=== PATIENT | male | born 1990 | race Hispanic/Latino ===

== ENCOUNTER 2023-10-09 08:17 | Inpatient (IN) | payer OTHER ==
[~2023-10-09] VITALS: Ht 167.6 cm; Wt 139.7 kg
[2023-10-09 08:42] LABS: BASOPHILS # (AUTO) 0.02 K/uL (0.00-0.20); BASOPHILS % (AUTO) 0.5 % (0.0-5.0); EOSINOPHILS # (AUTO) 0.12 K/uL (0.00-0.70); IMMATURE GRANULOCYTE ABSOLUTE 0.01 K/uL (0-1); LYMPHOCYTES % (AUTO) 26.2 % (21.0-51.0); MEAN CORPUSCULAR HEMOGLOBIN 30.1 pg (27.0-33.0); MEAN CORPUSCULAR VOLUME 83.5 fL (79-99); MONOCYTES # (AUTO) 0.8 K/uL (0.1-1.0); MONOCYTES % (AUTO) 19.1 % (3.0-13.0); NEUTROPHILS % (AUTO) 50.9 % (40.0-77.0); PLATELET COUNT (AUTO) 202 K/uL (130-400); RED BLOOD CELL COUNT(AUTO) 5.39 MIL/uL (4.50-6.20); RED CELL DISTRIBUTION WIDTH 11.8 % (11.0-15.5)
[2023-10-09 08:48] LABS: APPEARANCE,URINE CLEAR (CLEAR); BILIRUBIN,URINE NEGATIVE (NEGATIVE); COLOR,URINE YELLOW (YELLOW); GLUCOSE, URINE (UA) NEGATIVE (NEGATIVE); KETONES,URINE NEGATIVE (NEGATIVE); LEUKOCYTE ESTERASE ,URINE NEGATIVE Leu/uL (NEGATIVE); NITRATE,URINE NEGATIVE (NEGATIVE); OCCULT BLOOD,URINE SMALL (NEGATIVE); PROTEIN,URINE 10 mg/dL (NEGATIVE); UROBILINOGEN,URINE 0.2 mg/dL (0.2-1.0)
[2023-10-09 08:52] LABS: CREATININE 1.5 mg/dL (0.5-1.3); POTASSIUM 3.6 mmol/L (3.5-5.1)
[2023-10-09 08:55] LABS: ADD UA MICROSCOPIC YES; BACTERIA,URINE RARE /HPF (None Seen); MUCUS,URINE RARE LPF (None Seen); OTHER CASTS, URINE 1 /LPF (None Seen); SQUAMOUS EPITHELIAL CELL,UR RARE /HPF (0-2)
[2023-10-09 08:57] LABS: ALBUMIN 3.9 g/dL (3.5-5.0); BILIRUBIN,TOTAL 0.5 mg/dL (0.2-1.0); TOTAL PROTEIN, SERUM 8.1 g/dL (6.0-8.3)
[2023-10-09] MEDS: ASPIRIN 325MG TAB PO ONE (09:36)
[2023-10-09 10:41] LABS: SARS-CoV-2, RNA, NAAT NEGATIVE SARS CoV-2 (NEGATIVE)
[2023-10-09 10:44] LABS: INFLUENZA TYPE A Negative For Type A (NEGATIVE); INFLUENZA TYPE B Negative For Type B (NEGATIVE)
[2023-10-09] MEDS ORDERED: IOHEXOL 350 MG/ML 100ML INFUS..BTL IV ONE (11:11)
[2023-10-09] MEDS ORDERED: KCL 20 MEQ ERTAB PO PRN (12:30)
[2023-10-09] MEDS ORDERED: POTASSIUM CHLORIDE 20MEQ/100ML 100 ML IV PRN (12:30)
[2023-10-09] MEDS ORDERED: MORPHINE 2 MG SYG IVP PRN (12:30)
[2023-10-09] MEDS: 0.9%NACL 1000ML 1,000 ML IV SCH (12:47)
[2023-10-09] MEDS: CEFTRIAXONE 2GM VIAL IVPB SCH (12:47)
[2023-10-09] MEDS: DOXYCYCLINE HYCLATE 100 MG TABLET PO SCH (12:47)
[2023-10-09] MEDS ORDERED: HYDRALAZINE 20MG/ML VIAL IV PRN (13:00)
[2023-10-09 14:14] LABS: INR 1.1 (0.85-1.15); PARTIAL THROMBOPLASTIN TIME 27.4 SEC (26.3-35.5); PROTHROMBIN TIME 11.6 SEC (9.6-11.6)
[2023-10-09 14:30] LABS: THYROID STIMULATING HORMONE 9.4 uIU/mL (0.36-3.74)
[2023-10-09] MEDS ORDERED: ONDANSETRON 4MG INJ IVP PRN (14:30)
[2023-10-09 14:46] LABS: HEMOGLOBIN A1C 5.9 % (4.0-6.0)
[2023-10-09 15:45] VITALS: O2SAT 97
[2023-10-09 15:50] LABS: AMPHET/METH SCREEN,URINE NEGATIVE (NEGATIVE); BARBITURATE SCREEN, URINE NEGATIVE (NEGATIVE); BENZODIAZEPINES SCREEN,URINE NEGATIVE (NEGATIVE); CANNABINOID SCREEN,URINE NEGATIVE (NEGATIVE); COCAINE SCREEN,URINE NEGATIVE (NEGATIVE); CREATININE,URINE RANDOM 253.58 mg/dL (30-135); OPIATE SCREEN,URINE NEGATIVE (NEGATIVE); PHENCYCLIDINE SCREEN,URINE NEGATIVE (NEGATIVE); SODIUM,URINE RANDOM 114 mmol/l (40-220)
[2023-10-09 16:16] VITALS: BP 146/84; PULSE 80; RESP 16
[2023-10-09] MEDS: LOSARTAN 50 MG TABLET PO ONE (16:25)
[2023-10-09 20:00] VITALS: BP 142/86; PULSE 90; RESP 16
[2023-10-09] MEDS: DOXYCYCLINE 100MG+NS 250ML 250 ML IV SCH (20:45)
[2023-10-09] MEDS: FAMOTIDINE 20MG VIAL IV SCH (20:45)
[2023-10-10] VITALS (8 sets, daily range): BP systolic 136–145; BP diastolic 58–86; PULSE 57–79; RESP 16–20; O2SAT 96–97
[2023-10-10] MEDS: ACETAMINOPHEN 500 MG TABLET PO PRN (00:09)
[2023-10-10 04:56] LABS: THYROID STIMULATING HORMONE 17.33 uIU/mL (0.36-3.74)
[2023-10-10 05:05] LABS: HIV 1&2 ANTIBODY Non-Reactive (Negative); HIV-1 p24 Antigen Non-Reactive (Negative)
[2023-10-10 07:44] LABS: CREATININE 0.9 mg/dL (0.5-1.3); POTASSIUM 3.4 mmol/L (3.5-5.1)
[2023-10-10 08:38] LABS: BASOPHILS # (AUTO) 0.01 K/uL (0.00-0.20); BASOPHILS % (AUTO) 0.4 % (0.0-5.0); EOSINOPHILS # (AUTO) 0.26 K/uL (0.00-0.70); EOSINOPHILS % (AUTO) 9.6 % (0.0-8.0); HEMATOCRIT 40.3 % (42-54); IMMATURE GRANULOCYTE ABSOLUTE 0.02 K/uL (0-1); LYMPHOCYTES # (AUTO) 1.3 K/uL (1.0-4.8); LYMPHOCYTES % (AUTO) 46.3 % (21.0-51.0); MEAN CORPUSCULAR HEMOGLOBIN 30.1 pg (27.0-33.0); MEAN CORPUSCULAR HGB CONC 34.2 g/dL (32.0-36.0); MEAN CORPUSCULAR VOLUME 87.8 fL (79-99); MONOCYTES # (AUTO) 0.5 K/uL (0.1-1.0); MONOCYTES % (AUTO) 18.4 % (3.0-13.0); NEUTROPHILS # (AUTO) 0.7 K/uL (1.8-7.7); NEUTROPHILS % (AUTO) 24.6 % (40.0-77.0); PLATELET COUNT (AUTO) 146 K/uL (130-400); RED BLOOD CELL COUNT(AUTO) 4.59 MIL/uL (4.50-6.20); RED CELL DISTRIBUTION WIDTH 11.9 % (11.0-15.5); WHITE BLOOD COUNT (AUTO) 2.7 K/uL (4.8-10.8)
[2023-10-10] MEDS: LOSARTAN 50 MG TABLET PO SCH ×2 (08:59→21:17)
[2023-10-10] MEDS: ENOXAPARIN SODIUM 30 MG/0.3 ML SQ SCH (09:00)
[2023-10-10 10:15] LABS: BAND NEUTROPHILS % (MANUAL) 20 % (0-2); BASOPHILS % (MANUAL) 2 % (0-2); EOSINOPHILS % (MANUAL) 8 % (1-6); LYMPHOCYTES % (MANUAL) 47 % (22-44); MAN.DIFF COMMENT-IMPRESSION MANUAL DIFFERENTIAL; MONOCYTES % (MANUAL) 10 % (2-9); SEGMENTED NEUTROPHILS % 13 % (40-70); TOTAL CELLS COUNTED 100
[2023-10-10 10:16] LABS: PLATELET MORPHOLOGY COMMENT ADEQUATE; WBC MORPHOLOGY CONSISTENT W/DIFF
[2023-10-10] MEDS: POTASSIUM CHLORIDE 10% ELIXIR 20 MEQ/15 ML UDCUP PO PRN (12:28)
[2023-10-11] VITALS (9 sets, daily range): BP systolic 120–162; BP diastolic 62–95; PULSE 59–76; RESP 18–20; O2SAT 98–99
[2023-10-11 05:39] LABS: BASOPHILS # (AUTO) 0.04 K/uL (0.00-0.20); BASOPHILS % (AUTO) 0.9 % (0.0-5.0); EOSINOPHILS % (AUTO) 9.2 % (0.0-8.0); HEMATOCRIT 40.2 % (42-54); IMMATURE GRANULOCYTE ABSOLUTE 0.01 K/uL (0-1); LYMPHOCYTES # (AUTO) 2.1 K/uL (1.0-4.8); LYMPHOCYTES % (AUTO) 48.5 % (21.0-51.0); MEAN CORPUSCULAR HEMOGLOBIN 29.2 pg (27.0-33.0); MEAN CORPUSCULAR HGB CONC 34.3 g/dL (32.0-36.0); MEAN CORPUSCULAR VOLUME 85.2 fL (79-99); MONOCYTES # (AUTO) 0.6 K/uL (0.1-1.0); MONOCYTES % (AUTO) 14.6 % (3.0-13.0); NEUTROPHILS # (AUTO) 1.2 K/uL (1.8-7.7); NEUTROPHILS % (AUTO) 26.6 % (40.0-77.0); PLATELET COUNT (AUTO) 174 K/uL (130-400); RED BLOOD CELL COUNT(AUTO) 4.72 MIL/uL (4.50-6.20); RED CELL DISTRIBUTION WIDTH 11.8 % (11.0-15.5); WHITE BLOOD COUNT (AUTO) 4.4 K/uL (4.8-10.8)
[2023-10-11 06:00] LABS: ALBUMIN 3.1 g/dL (3.5-5.0); BILIRUBIN,TOTAL 0.3 mg/dL (0.2-1.0); MAGNESIUM 1.7 mg/dL (1.80-2.40); POTASSIUM 4.2 mmol/L (3.5-5.1); TOTAL PROTEIN, SERUM 6.8 g/dL (6.0-8.3)
[2023-10-11] MEDS: LEVOTHYROXINE 50 MCG TABLET PO SCH (06:52)
[2023-10-11] MEDS: MAGNESIUM 2GM PREMIX 50ML 50 ML IV PRN (18:53)
[2023-10-12 03:56] VITALS: BP 111/66; PULSE 74; RESP 18
[2023-10-12 08:00] VITALS: BP 138/75; PULSE 82; RESP 18; O2SAT 96
[2023-10-12] MEDS: FOLIC ACID 1 MG TABLET PO SCH (09:00)
[2023-10-12] MEDS: ASPIRIN 81MG CHEW TAB PO SCH (09:00)
[2023-10-12] MEDS ORDERED: LEVO50TA4 PO (09:45)
[2023-10-12] MEDS ORDERED: CYAN-35 PO (09:45)
[2023-10-12] MEDS ORDERED: ASPI-1005 PO (09:45)
[2023-10-12] MEDS ORDERED: LOSA-418 PO (09:45)
[2023-10-12] MEDS ORDERED: FOLI1 PO (09:45)
[2023-10-12 10:12] LABS: POTASSIUM 3.9 mmol/L (3.5-5.1)
[2023-10-12 10:16] LABS: ALBUMIN 3.2 g/dL (3.5-5.0); BILIRUBIN,TOTAL 0.2 mg/dL (0.2-1.0); MAGNESIUM 1.7 mg/dL (1.80-2.40); TOTAL PROTEIN, SERUM 6.9 g/dL (6.0-8.3)
[2023-10-12] MEDS: REGADENOSON 0.4 MG/5 ML PF SYG IVP SCH (12:13)
[2023-10-12 16:00] VITALS: BP 140/71; PULSE 75; RESP 18
[2023-10-12 16:13] LABS: DRVVT CONFIRMATION-LUPUS 1.4 ratio (0.8-1.2); DRVVT-LUPUS ANTICOAGULANT 52.8 sec (0.0-47.0)
[2023-10-12 20:08] VITALS: O2SAT 97
== END 2023-10-12 20:08 | disposition home or self-care (01) | DRG 302 ==
LOC: EDH 08:17 → EDHIP 12:17 → 4BH 14:50
PROVIDERS: ADMIT Internal Medicine; ATTEND Internal Medicine
DX: I25.10 Atherosclerotic heart disease of native coronary artery without angina pectoris (principal); I50.31 Acute diastolic (congestive) heart failure; N17.9 Acute kidney failure, unspecified; Z68.42 Body mass index [BMI] 45.0-49.9, adult; I11.0 Hypertensive heart disease with heart failure; E66.9 Obesity, unspecified; D69.6 Thrombocytopenia, unspecified; D72.10 Eosinophilia, unspecified; E03.9 Hypothyroidism, unspecified; E83.51 Hypocalcemia; E86.9 Volume depletion, unspecified; I34.81 Nonrheumatic mitral (valve) annulus calcification; R73.03 Prediabetes; Z82.49 Family history of ischemic heart disease and other diseases of the circulatory system; Z83.2 Family history of diseases of the blood and blood-forming organs and certain disorders involving the immune mechanism; Z79.899 Other long term (current) drug therapy
CPT/HCPCS: 36415; 71045; 71270; 76770; 78452; 80048; 80053; 80061; 80305; 81001; 81241; 82306; 82330; 82550; 82570; 82948; 83036; 83690; 83735; 83970; 84145; 84300; 84439; 84443; 84481; 84484; 85025; 85210; 85303; 85306; 85378; 85610; 85651; 85730; 85732; 86000; 86038; 86140; 86147; 86160; 86215; 86235; 86701; 87040; 87390; 87635; 87804; 93005; 93017; 93306; 93356; 93970; 96374; A9500; G0378; J0696; J1650; J2785; J3475; J3490; J7030; Q9967